=== PATIENT | female | born 1985 | race Caucasian/White ===

== ENCOUNTER 2016-08-20 19:32 | Emergency (ER) | payer BC ==
[~2016-08-20] VITALS: Ht 167.6 cm; Wt 62.5 kg
[~2016-08-20 19:32] MED LIST: MTR600X PO; PRENTAB26 PO
[2016-08-20 19:36] VITALS: TEMP 36.9; Ht 167.6 cm; Wt 62.5 kg
[2016-08-20] MEDS ORDERED: IBUP-1050 PO (19:50)
[2016-08-20] MEDS ORDERED: SODIUM CHLORIDE 0.9% 1000ML 1,000 ML IV ONE (19:54)
--- NOTE | 2016-08-20 19:56 | EMERGENCY ROOM VISIT NOTE ---
History Report prepared by Logan: Konrad Rodriguez Under the Supervision of: Dr. Rudy Ellison D.O. First contact with patient: 19:40 Chief Complaint: REFERRED BY DOCTOR Stated Complaint: WEAK,TIRED,BLOOD RESULTS HIGH WBC History of Present Illness The patient is a 31 year old female who presents to the Emergency Room with complaints of persistent fatigue that started today. The patient notes that when she woke up this morning she had some flu-like symptoms. She complained of a slight headache, body aches, and feeling tired. The patient was worried that she might have TSS because she had left a tampon in yesterday for about 9 hours. The patient had blood work done earlier today at [facility]. They called her back an hour ago and said she had a high white blood count and was worried about a bacterial infection. The patient denies nausea, vomiting, rashes , pain, redness or swelling on her skin, fevers, vaginal redness or discharge, or a sore throat. Source of History: patient Onset: today Position: other (global) Timing: other (persistent) Associated Symptoms: No fevers, No nausea, No rash, No sorethroat, No vomiting Note: Other associated symptoms: flu-like symptoms, body aches Denies: pain, redness or swelling on her skin, vaginal redness or discharge Review of Systems See HPI for pertinent positives & negatives. A total of 10 systems reviewed and were otherwise negative. Past Medical & Surgical Medical Problems: (1) No pertinent past medical history Family History No pertinent family history Social History Smoking Status: Never Smoker Marital Status: Housing Status: lives with family Occupation Status: employed Current/Historical Medications Scheduled Cefdinir (Omnicef), 300 MG PO Q12H Scheduled PRN Ibuprofen (Advil), 200-600 MG PO Q4H PRN for PAIN, ENGLISH, CRAMPS Allergies Coded Allergies: No Known Allergies (Unverified , 08/20/16) Physical Exam Vital Signs Date Time Temp Pulse Resp B/P Pulse Ox O2 Delivery O2 Flow Rate FiO2 08/20/16 23:17 100 18 126/72 96 08/20/16 22:13 95 20 124/79 98 Room Air 08/20/16 21:05 100 Room Air 08/20/16 21:05 101 16 130/77 99 Room Air 08/20/16 19:36 36.9 102 18 137/81 99 Room Air Physical Exam GENERAL: Patient is awake alert, tearful and anxious appearing. EYES: The conjunctivae are clear. The pupils are round and reactive. EARS, NOSE, MOUTH AND THROAT: The nose is without any evidence of any deformity. Mucous membranes are moist tongue is midline NECK: The neck is nontender and supple. RESPIRATORY: Normal respiratory effort is noted there is no evidence of wheezing rhonchi or rales CARDIOVASCULAR: Regular rate and rhythm noted there no murmurs rubs or gallops normal S1 normal S2 GASTROINTESTINAL: The abdomen is soft. Bowel sounds are present in all quadrants. Abdomen is nontender BACK: No midline tenderness or or step-off noted range of motion in flexion extension as well as rotation no signs of muscle spasm noted MUSCULOSKELETAL/EXTREMITIES: There is no evidence of gross deformity full range of motion is noted in the hips and shoulders SKIN: There is no obvious evidence of any rash. There are no petechiae, pallor or cyanosis noted. NEUROLOGIC: Patient is awake alert and oriented x3 strength is symmetric patellar reflexes are 2+ bilaterally Medical Decision & Procedures ER Provider Diagnostic Interpretation: X-ray results as stated below per interpretation by me and the radiologist. CHEST 2 VIEWS ROUTINE HISTORY: cough COMPARISON: None. FINDINGS: The lungs are clear. Cardiac silhouette is normal in size. No pleural effusions. No pneumothorax. IMPRESSION: No acute process. Electronically signed by: Steven Thayer M.D. 08/20/2016 8:55 PM Dictated Date/Time: 08/20/2016 8:54 PM Laboratory Results 08/20/16 21:04 Red Blood Count 4.05, Mean Corpuscular Volume 88.9, Mean Corpuscular Hemoglobin 29.6, Mean Corpuscular Hemoglobin Concent 33.3, Mean Platelet Volume 10.2, Neutrophils (%) (Auto) 85.6, Lymphocytes (%) (Auto) 8.8, Monocytes (%) (Auto) 4.4, Eosinophils (%) (Auto) 0.6, Basophils (%) (Auto) 0.2, Neutrophils # (Auto) 17.19, Lymphocytes # (Auto) 1.77, Monocytes # (Auto) 0.88, Eosinophils # (Auto) 0.13, Basophils # (Auto) 0.05 08/20/16 20:20 Test 08/20/16 20:10 08/20/16 20:20 08/20/16 20:30 08/20/16 21:04 Urine Color YELLOW Urine Appearance CLEAR (CLEAR) Urine pH 6.0 (4.5-7.5) Urine Specific Hamel 1.026 (1.000-1.030) Urine Protein NEG (NEG) Urine Glucose (UA) NEG (NEG) Urine Ketones TRACE (NEG) Urine Occult Blood 1+ (NEG) Urine Nitrite NEG (NEG) Urine Bilirubin NEG (NEG) Urine Urobilinogen NEG (NEG) Urine Leukocyte Esterase NEG (NEG) Urine WBC (Auto) 1-5 /hpf (0-5) Urine RBC (Auto) 5-10 /hpf (0-4) Urine Hyaline Casts (Auto) 1-5 /lpf (0-5) Urine Epithelial Cells (Auto) 10-20 /lpf (0-5) Urine Bacteria (Auto) NEG (NEG) Urine Test NEG (NEG) Prothrombin Time 11.8 SECONDS (9.0-12.0) Prothromb Time International Ratio 1.1 (0.9-1.1) Activated Partial Thromboplast Time 34.9 SECONDS (21.0-31.0) Partial Thromboplastin Ratio 1.3 Anion Gap 5.0 mmol/L (3-11) Est Creatinine Clear Calc Drug Dose 98.7 ml/min Estimated GFR () 118.2 Estimated GFR (Non- 102.0 BUN/Creatinine Ratio 15.9 (10-20) Calcium Level 9.1 mg/dl (8.5-10.1) Magnesium Level 2.4 mg/dl (1.8-2.4) Total Bilirubin 0.5 mg/dl (0.2-1) Aspartate Amino Transf (AST/SGOT) 9 U/L (15-37) Alanine Aminotransferase (ALT/SGPT) 23 U/L (12-78) Alkaline Phosphatase 84 U/L (45-117) C-Reactive Protein 16.00 mg/dl (0-0.29) Total Protein 7.7 gm/dl (6.4-8.2) Albumin 4.1 gm/dl (3.4-5.0) Globulin 3.6 gm/dl (2.5-4.0) Albumin/Globulin Ratio 1.1 (0.9-2) Lyme Disease IgG Antibody NEG (NEG) Lyme Disease IgM Antibody NEG (NEG) Monoscreen NEG (NEG) Bedside Lactic Acid Venous 1.45 mmol/L (0.90-1.70) Influenza Type A (RT-PCR) Neg for Influ A (NEG) Influenza Type A Antigen Neg for Influ A (NEG) Influenza Type B Antigen Neg for Influ B (NEG) Influenza Type B (RT-PCR) Neg for Influ B (NEG) White Blood Count 20.11 K/uL (4.8-10.8) Red Blood Count 4.05 M/uL (4.2-5.4) Hemoglobin 12.0 g/dL (12.0-16.0) Hematocrit 36.0 % (37-47) Mean Corpuscular Volume 88.9 fL (80-100) Mean Corpuscular Hemoglobin 29.6 pg (25-34) Mean Corpuscular Hemoglobin Concent 33.3 g/dl (32-36) Platelet Count 216 K/uL (130-400) Mean Platelet Volume 10.2 fL (7.4-10.4) Neutrophils (%) (Auto) 85.6 % Lymphocytes (%) (Auto) 8.8 % Monocytes (%) (Auto) 4.4 % Eosinophils (%) (Auto) 0.6 % Basophils (%) (Auto) 0.2 % Neutrophils # (Auto) 17.19 K/uL (1.4-6.5) Lymphocytes # (Auto) 1.77 K/uL (1.2-3.4) Monocytes # (Auto) 0.88 K/uL (0.11-0.59) Eosinophils # (Auto) 0.13 K/uL (0-0.5) Basophils # (Auto) 0.05 K/uL (0-0.2) RDW Standard Deviation 41.4 fL (36.4-46.3) RDW Coefficient of Variation 12.9 % (11.5-14.5) Immature Granulocyte % (Auto) 0.4 % Immature Granulocyte # (Auto) 0.09 K/uL (0.00-0.02) Erythrocyte Sedimentation Rate 10 mm/hr (0-21) Laboratory results per my review. Medications Administered Medications (Trade) Dose Ordered Sig/Radha Route Start Time Stop Time Status Last Admin Dose Admin Sodium Chloride (Nss 1000ml) 1,000 ml @ 999 mls/hr Q1H1M ONCE IV 08/20/16 19:54 08/20/16 20:54 DC 08/20/16 20:34 999 MLS/HR Ceftriaxone Sodium (Rocephin Inj) 1 gm NOW STAT IV 08/20/16 22:05 08/20/16 22:06 DC 08/20/16 22:10 1 GM ED Course 1940: The patient was evaluated in room C2. A complete history and physical examination were performed. 1953: Ordered NSS 1000 ml @ 999 mls/hr IV. 2129: At this time, I reevaluated the patient and she was feeling better. 2204: Ordered Rocephin Inj 1 gm IV. 2213: Upon reevaluation, the patient is resting comfortably. I discussed the results and treatment plan with her. She verbalized agreement of the treatment plan. The patient was discharged home. Medical Decision Differential diagnosis: Etiologies such as viral syndrome, otitis, pharyngitis, pneumonia, influenza, meningitis, urinary tract infection, sepsis, bacteremia, as well as others were entertained. Nursing notes reviewed. Patient's previous electronic medical records reviewed. Patient's recent outpatient laboratory studies were reviewed. The patient is a 31-year-old female who presented to the emergency department for an evaluation of body aches and headache. The patient was concerned she may have an infectious process. She went to see her primary care physician and was sent to the emergency department after her white blood cell count was found to be elevated. The patient did not have any meningismus or focal neurologic deficits. She had no other complaints such as rash or vaginal pain. She was concerned because she thought she could have toxic shock syndrome although his appears to be very unlikely. I discussed the patient's laboratory and radiographic studies with her. Her white blood cell count improve minimally. I could not find a definite source for the patient's fever. She was treated with IV fluids and on subsequent reevaluation was feeling much better. She was given a dose of IV antibiotics empirically. She was encouraged to rest and avoid any strenuous activity. She was also encouraged to drink plenty clear liquids and continue using Motrin and Tylenol for pain. She was also encouraged to return to the emergency Department immediately if symptoms change worsen or the need arises. Impression Primary Impression: Abnormal WBC count Additional Impressions: Fatigue Headache Scribe Attestation The scribe's documentation has been prepared under my direction and personally reviewed by me in its entirety. I confirm that the note above accurately reflects all work, treatment, procedures, and medical decision making performed by me. Departure Information Dispostion Home / Self-Care Prescriptions Cefdinir (Omnicef) 300 Mg Cap 300 MG PO Q12H, #14 CAP Prov: Rudy Ellison, 08/20/16 Referrals Carlene Echeverria DO (PCP) Forms HOME CARE DOCUMENTATION FORM, IMPORTANT VISIT INFORMATION, WORK / SCHOOL INSTRUCTIONS Patient Instructions Headache Pain, My [facility] Additional Instructions Continue using Motrin and Tylenol as directed for fever and body aches. Drink plenty clear liquids. Follow-up with your family doctor as soon as possible. Return to the emergency department immediately if symptoms change worsen or the need arises. Problem Qualifiers Additional Impressions: Fatigue Fatigue type: unspecified Qualified Codes: R53.83 - Other fatigue Headache Headache type: unspecified Headache chronicity pattern: acute headache Intractability: not intractable Qualified Codes: R51 - Headache
[2016-08-20 20:31] LABS: URINE APPEARANCE CLEAR (CLEAR); URINE BILIRUBIN NEG (NEG); URINE COLOR YELLOW; URINE NITRITE NEG (NEG); URINE SPECIFIC GRAVITY 1.026 (1.000-1.030); UROBILINOGEN NEG (NEG)
[2016-08-20 20:33] LABS: MANUAL MICROSCOPIC REQUIRED? NO; REVIEW REQ? NO
[2016-08-20 20:45] LABS: INR 1.1 (0.9-1.1); PARTIAL THROMBOPLASTIN RATIO 1.3; PROTHROMBIN TIME (PATIENT) 11.8 SECONDS (9.0-12.0)
[2016-08-20 20:53] LABS: BUN/CREATININE RATIO 15.9 (10-20); CALCIUM 9.1 mg/dl (8.5-10.1); CREATININE 0.78 mg/dl (0.60-1.20); MAGNESIUM 2.4 mg/dl (1.8-2.4); POTASSIUM 3.3 mmol/L (3.5-5.1)
[2016-08-20 20:56] LABS: ALB/GLOB RATIO 1.1 (0.9-2)
--- NOTE | 2016-08-20 20:56 | DIAGNOSTIC IMAGING REPORT ---
CHEST 2 VIEWS ROUTINE HISTORY: cough COMPARISON: None. FINDINGS: The lungs are clear. Cardiac silhouette is normal in size. No pleural effusions. No pneumothorax. IMPRESSION: No acute process. Electronically signed by: Steven Thayer M.D. 08/20/2016 8:55 PM Dictated Date/Time: 08/20/2016 8:54 PM
[2016-08-20 21:05] VITALS: O2SAT 100
[2016-08-20 21:12] LABS: BASO % 0.2 %; BASO ABS # 0.05 K/uL (0-0.2); COMPLETE YES; EOS % 0.6 %; IG% 0.4 %; LYMPH % 8.8 %; LYMPH ABS # 1.77 K/uL (1.2-3.4); MEAN CELL VOLUME 88.9 fL (80-100); MEAN CORPUSCULAR HEMOGLOBIN 29.6 pg (25-34); MEAN CORPUSCULAR HGB CONC 33.3 g/dl (32-36); MEAN PLATELET VOLUME 10.2 fL (7.4-10.4); MONO % 4.4 %; NEUT % 85.6 %; PLATELET COUNT 216 K/uL (130-400); RED BLOOD COUNT 4.05 M/uL (4.2-5.4); WHITE BLOOD COUNT 20.11 K/uL (4.8-10.8)
[2016-08-20 21:28] LABS: LYME DISEASE AB IGG NEG (NEG); LYME DISEASE AB IGM NEG (NEG)
[2016-08-20] MEDS ORDERED: CEFTRIAXONE SOD INJ 1 GM ADDVIAL IV STA (22:05)
[2016-08-20] MEDS ORDERED: CEFD1CAP14 PO (22:10)
[2016-08-20 22:38] LABS: INFLUENZA A PCR Neg for Influ A (NEG); INFLUENZA B PCR Neg for Influ B (NEG)
[2016-08-20 23:17] VITALS: BP 126/72; PULSE 100; O2SAT 96
== END 2016-08-20 23:17 | disposition home or self-care (01) ==
LOC: C.EDB 19:33 → C.EDC 23:17
DX: R53.83 Other fatigue (principal); R51 Headache; D72.9 Disorder of white blood cells, unspecified